=== PATIENT | female | born 1960 | race Caucasian/White ===

== ENCOUNTER → 2016-07-05 | Outpatient (CLI) | payer BC ==
[2016-07-05 07:48] LABS: ADD SCAN DIFF NO
[2016-07-05 08:10] LABS: BASOPHILS % 0.4 % (0.0-2.0); EOSINOPHILS # 0.1 10^3/ul (0.0-0.5); EOSINOPHILS % 2.2 % (0.0-7.0); HEMATOCRIT 38.7 % (37.0-47.0); HEMOGLOBIN 12.1 g/dl (12.0-16.0); LYMPHOCYTES # 1.7 10^3/ul (0.8-2.9); LYMPHOCYTES % 38.9 % (15.0-51.0); MEAN CORPUSCULAR HEMOGLOBIN 29.8 pg (29.0-33.0); MEAN CORPUSCULAR HGB CONC 31.3 g/dl (32.0-37.0); MEAN CORPUSCULAR VOLUME 95.3 fl (82.0-101.0); MEAN PLATELET VOLUME 9.8 fl (7.4-10.4); MONOCYTE # 0.4 10^3/ul (0.3-0.9); MONOCYTES % 9.6 % (0.0-11.0); NEUTROPHIL # 2.2 10^3/ul (1.6-7.5); NEUTROPHILS % 48.7 % (39.0-77.0); PLATELET COUNT 224 10^3/UL (140-415); RED BLOOD COUNT 4.06 10^6/ul (4.20-5.40); RED CELL DISTRIBUTION WIDTH 14.2 % (11.5-14.5); WHITE BLOOD COUNT 4.5 10^3/ul (4.8-10.8)
[2016-07-05 08:23] LABS: ALBUMIN 4.4 g/dl (3.3-4.9)
[2016-07-05 08:26] LABS: CREATININE 0.7 mg/dl (0.44-1.00)
[2016-07-05 08:27] LABS: ALBUMIN/GLOBULIN RATIO 1.33; CALCIUM 9.3 mg/dl (8.4-10.2); CHOL/HDL RATIO 3.6 RATIO; TOTAL PROTEIN 7.7 g/dl (6.1-8.1)
[2016-07-05 08:37] LABS: ADD UMIC YES; URINE BILIRUBIN (Dip) NEGATIVE (NEGATIVE); URINE BLOOD (Dip) 3+ (NEGATIVE); URINE COLOR LT. YELLOW (YELLOW); URINE GLUCOSE (Dip) NEGATIVE (NEGATIVE); URINE KETONES (Dip) NEGATIVE (NEGATIVE); URINE LEUKOCYTE ESTERASE (Dip) TRACE (NEGATIVE); URINE NITRITE (Dip) NEGATIVE (NEGATIVE); URINE TOTAL PROTEIN (Dip) NEGATIVE (NEGATIVE); URINE UROBILINOGEN (Dip) 0.2 E.U./dL (0.1-1.0)
[2016-07-05 09:41] LABS: BACTERIA,URINE MODERATE; MUCUS,URINE MANY
[2016-07-05 14:53] LABS: THYROID STIMULATING HORMONE 3.02 MIU/L (0.465-4.680)
== END | disposition home or self-care (01) ==
LOC: LAB 07:45
PROVIDERS: ATTEND Internal Medicine
DX: E78.5 Hyperlipidemia, unspecified (principal); E03.9 Hypothyroidism, unspecified; D64.9 Anemia, unspecified; N20.0 Calculus of kidney
CPT/HCPCS: 80053; 80061; 81001; 81003; 84436; 84443; 85025; 86140

== ENCOUNTER → 2016-07-26 | Outpatient (CLI) | payer BC | END | disposition home or self-care (01) | LOC: LAB 08:08 | PROVIDERS: ATTEND Internal Medicine | DX: N39.0 Urinary tract infection, site not specified (principal) | CPT/HCPCS: 87086 ==

== ENCOUNTER → 2017-07-30 | Outpatient (CLI) | END | disposition home or self-care (01) ==